=== PATIENT | female | born 1935 | race Caucasian/White ===

== ENCOUNTER → 2018-09-21 | Outpatient (CLI) | payer OTHER ==
[2018-09-21 19:27] VITALS: BP 99/51
== END | disposition home or self-care (01) ==
LOC: WHH 10:30
PROVIDERS: ATTEND Surgery
DX: L89.154 Pressure ulcer of sacral region, stage 4 (principal); S91.302A Unspecified open wound, left foot, initial encounter; S01.301A Unspecified open wound of right ear, initial encounter; K21.9 Gastro-esophageal reflux disease without esophagitis; F31.9 Bipolar disorder, unspecified; F03.90 Unspecified dementia, unspecified severity, without behavioral disturbance, psychotic disturbance, mood disturbance, and anxiety; Z93.1 Gastrostomy status; X58.XXXA Exposure to other specified factors, initial encounter; Y93.89 Activity, other specified; Y92.89 Other specified places as the place of occurrence of the external cause; Y99.8 Other external cause status
CPT/HCPCS: 11042; A6213; A6234; G0463

== ENCOUNTER → 2018-09-30 | Outpatient (CLI) | payer OTHER ==
[~2018-09-30] MED LIST: HONEY 1 APPL/ML TUBE TP ONE
[2018-09-30 14:54] VITALS: BP 133/74
== END | disposition home or self-care (01) ==
LOC: WHH 09:25
PROVIDERS: ATTEND Surgery
DX: L89.154 Pressure ulcer of sacral region, stage 4 (principal); S91.302D Unspecified open wound, left foot, subsequent encounter; S01.301D Unspecified open wound of right ear, subsequent encounter; S06.5X0D Traumatic subdural hemorrhage without loss of consciousness, subsequent encounter; K21.9 Gastro-esophageal reflux disease without esophagitis; M62.59 Muscle wasting and atrophy, not elsewhere classified, multiple sites; G30.9 Alzheimer's disease, unspecified; F02.80 Dementia in other diseases classified elsewhere, unspecified severity, without behavioral disturbance, psychotic disturbance, mood disturbance, and anxiety; F31.9 Bipolar disorder, unspecified; Z93.1 Gastrostomy status; X58.XXXD Exposure to other specified factors, subsequent encounter
CPT/HCPCS: 11043; A6213; 11042; 11045

== ENCOUNTER 2018-11-06 10:10 | Inpatient (IN) | payer OTHER ==
[~2018-11-06] VITALS: Ht 167.6 cm; Wt 65.7 kg
[~2018-11-06 10:10] MED LIST changes: -HONEY 1 APPL/ML TUBE TP ONE; +VANCOMYCIN 1.5 GM in SODIUM CHLORIDE 0.9% 250 ML IV SCH
[2018-11-06] MEDS ORDERED: MEROPENEM 1 GM VIAL ONE ×2 (12:12→20:31)
[2018-11-06 12:48] LABS: BASOPHILS % (AUTO) 0.4 % (0.0-5.0); EOSINOPHILS % (AUTO) 0.8 % (0.0-8.0); HEMATOCRIT 28.7 % (36-48); LYMPHOCYTES % (AUTO) 6.1 % (21.0-51.0); MEAN CORPUSCULAR HEMOGLOBIN 24.6 pg (27.0-33.0); MEAN CORPUSCULAR HGB CONC 31.8 g/dL (32.0-36.0); MEAN CORPUSCULAR VOLUME 77.4 fL (79-99); MONOCYTES % (AUTO) 6.2 % (3.0-13.0); NEUTROPHILS % (AUTO) 86.5 % (40.0-77.0); PLATELET COUNT (AUTO) 418 K/uL (130-400); RED BLOOD CELL COUNT(AUTO) 3.71 MIL/uL (4.00-5.50); RED CELL DISTRIBUTION WIDTH 17.5 % (11.0-15.5); WHITE BLOOD COUNT (AUTO) 13.1 K/uL (4.8-10.8)
[2018-11-06 12:57] LABS: CREATININE 0.5 mg/dL (0.5-1.5); POTASSIUM 3.2 mmol/L (3.5-5.1)
[2018-11-06 12:58] LABS: INR 1.08 (0.85-1.15); PARTIAL THROMBOPLASTIN TIME 32.4 SEC (26.3-35.5); PROTHROMBIN TIME 11.3 SEC (9.6-11.6)
[2018-11-06 13:01] LABS: ALBUMIN 1.4 g/dL (3.5-5.0); BILIRUBIN,DIRECT 0.2 mg/dL (0.0-0.3); BILIRUBIN,TOTAL 0.3 mg/dL (0.2-1.0); TOTAL PROTEIN, SERUM 4.6 g/dL (6.0-8.3)
[2018-11-06 13:13] LABS: B-TYPE NATRIURETIC PEPTIDE 186 pg/mL (0-100)
[2018-11-06 14:10] LABS: BILIRUBIN,URINE Negative (NEGATIVE); COLOR,URINE Yellow (YELLOW); GLUCOSE, URINE (UA) Negative (NEGATIVE); KETONES,URINE Negative (NEGATIVE); LEUKOCYTE ESTERASE ,URINE Negative (NEGATIVE); NITRATE,URINE Negative (NEGATIVE); OCCULT BLOOD,URINE Negative (NEGATIVE); PROTEIN,URINE Negative (NEGATIVE)
[2018-11-06 14:18] LABS: APPEARANCE,URINE Clear (CLEAR)
[2018-11-06] MEDS ORDERED: MORPHINE SULFATE 2 MG/ML 1ML SYG IV PRN (16:45)
[2018-11-06] MEDS ORDERED: ONDANSETRON HCL 4 MG/2 ML VIAL IV PRN (16:45)
[2018-11-06] MEDS ORDERED: FAMOTIDINE/PF 20 MG/2 ML VIAL IV ONE (20:50)
[2018-11-06] MEDS: FAMOTIDINE/PF 20 MG/2 ML VIAL IV SCH (21:00)
[2018-11-07] MEDS: MEROPENEM 1 GM VIAL IV SCH ×4 (01:00→18:11)
[2018-11-07] MEDS ORDERED: ONDANSETRON HCL 4 MG/2 ML VIAL ONE (01:07)
[2018-11-07] MEDS ORDERED: MORPHINE SULFATE 2 MG/ML 1ML SYG ONE (01:07)
[2018-11-07 03:06] VITALS: BP 177/115
[2018-11-07 05:03] VITALS: BP 162/76
[2018-11-07 06:33] LABS: BASOPHILS % (AUTO) 0.5 % (0.0-5.0); EOSINOPHILS % (AUTO) 0.8 % (0.0-8.0); LYMPHOCYTES % (AUTO) 6.8 % (21.0-51.0); MEAN CORPUSCULAR HEMOGLOBIN 25.7 pg (27.0-33.0); MEAN CORPUSCULAR HGB CONC 32.7 g/dL (32.0-36.0); MEAN CORPUSCULAR VOLUME 78.6 fL (79-99); MONOCYTES % (AUTO) 5.1 % (3.0-13.0); NEUTROPHILS % (AUTO) 86.8 % (40.0-77.0); PLATELET COUNT (AUTO) 478 K/uL (130-400); RED BLOOD CELL COUNT(AUTO) 4.07 MIL/uL (4.00-5.50); RED CELL DISTRIBUTION WIDTH 17.7 % (11.0-15.5); WHITE BLOOD COUNT (AUTO) 10.7 K/uL (4.8-10.8)
[2018-11-07 06:43] LABS: CREATININE 0.4 mg/dL (0.5-1.5); POTASSIUM 3.1 mmol/L (3.5-5.1)
[2018-11-07 08:00] VITALS: BP 130/69
[2018-11-07] MEDS: FAMOTIDINE/PF 20 MG/2 ML VIAL IV SCH ×2 (09:17→22:20)
[2018-11-07] MEDS: ENOXAPARIN SODIUM 30 MG/0.3 ML SQ SCH (09:17)
[2018-11-07 12:00] VITALS: BP 128/72
[2018-11-07] MEDS ORDERED: LIDOCAINE HCL-MPF 1% 2ML VIAL IVP PRN (14:30)
[2018-11-07] MEDS ORDERED: POTASSIUM CHLORIDE 20MEQ/100ML 100 ML IV PRN (14:30)
[2018-11-07 16:00] VITALS: BP 132/68
[2018-11-07] MEDS: INSULIN HUMULIN R 100 UNIT/ML 3ML SQ SCH ×2 (16:30→21:00)
--- NOTE | 2018-11-07 17:28 | NUR ---
INITIAL: Spoke w Ashlee Laird @ [phone] patients guardian via phone to discuss dcp. Per Ashlee pt is a resident @ [facility]. Pt is dependent w ADLs and care. Ashlee states plan is for pt to return to [facility] @ dc. MARS/PC phone consent obtained. Will continue to follow and wait for Md recommendations. Addendum: 11/07/18 at 1730 by ELSA DURAN CM Amended: Links added.
--- NOTE | 2018-11-07 18:00 | NUR ---
CLEANED SACRAL WOUND WITH NORMAL SALINE. APPLIED WET TO DRY SOAKED KERLIX, 4X4 , ABD AND SECURED WITH MEDIPORE TAPE. PATIENT TOLERATED WELL.
[2018-11-07 19:55] VITALS: BP 121/62
[2018-11-08 00:36] VITALS: BP 135/63
[2018-11-08] MEDS: MEROPENEM 1 GM VIAL IV SCH ×3 (01:29→17:07)
[2018-11-08 04:01] VITALS: BP 116/61
[2018-11-08 06:03] LABS: HEMATOCRIT 27.3 % (36-48); MEAN CORPUSCULAR HEMOGLOBIN 24.6 pg (27.0-33.0); MEAN CORPUSCULAR HGB CONC 31.2 g/dL (32.0-36.0); PLATELET COUNT (AUTO) 418 K/uL (130-400); RED BLOOD CELL COUNT(AUTO) 3.46 MIL/uL (4.00-5.50); RED CELL DISTRIBUTION WIDTH 17.2 % (11.0-15.5); WHITE BLOOD COUNT (AUTO) 11.8 K/uL (4.8-10.8)
[2018-11-08] MEDS: INSULIN HUMULIN R 100 UNIT/ML 3ML SQ SCH ×4 (06:04→21:00)
[2018-11-08 06:15] LABS: CREATININE 0.5 mg/dL (0.5-1.5); MAGNESIUM 1.6 mg/dL (1.80-2.40); POTASSIUM 3.3 mmol/L (3.5-5.1)
[2018-11-08 07:00] VITALS: BP 121/59
[2018-11-08] MEDS ORDERED: LEVE500L PO (07:45)
[2018-11-08] MEDS ORDERED: PANT40SU PO (07:45)
[2018-11-08] MEDS ORDERED: MEMA10TA11 PO (07:45)
[2018-11-08] MEDS ORDERED: ACET650S28 PO (07:45)
[2018-11-08] MEDS ORDERED: GUAI100S13 PO (07:45)
[2018-11-08] MEDS ORDERED: FAMO40TA7 PO (07:45)
[2018-11-08] MEDS ORDERED: IPRA3AMP24 IH (07:45)
[2018-11-08] MEDS: FAMOTIDINE/PF 20 MG/2 ML VIAL IV SCH ×2 (09:25→21:22)
[2018-11-08] MEDS: ENOXAPARIN SODIUM 30 MG/0.3 ML SQ SCH (09:26)
[2018-11-08] MEDS ORDERED: BISACODYL 10 MG SUPP.RECT RC PRN (10:30)
[2018-11-08 11:00] VITALS: BP 123/59
--- NOTE | 2018-11-08 12:49 | NUR ---
CM Note: HNR pending approval Spoke to Caterina w/HNR, received clinicals and new pasrr. Pt pending approval at this time. EMS filled out, pending to be faxed w/current date, primary nurse to call [facility] once pt has approval and ready to DC. Primary nurse aware. CM to cont to follow up.
[2018-11-08 16:00] VITALS: BP 112/56
--- NOTE | 2018-11-08 16:04 | NUR ---
RD Notification RD Bolus tube feeding recommendations: x5cans/day: 1185mL/1775kcal/76gPro/900mL Flushes:70mL before and after each feeding. Patient with Stg 4 decubitus ulcer; Rec to administer Kristofer BID. Rec to add Vitamin C, Zinc for wound healing support. Patient monitored labs: K 3.3, Glu 125, Mg 1.60, Alb 1.4. RD to continue to monitor. Please notify RD as nutritional concerns arise. Thank you. Addendum: 11/08/18 at [address] Amended: Links added.
[2018-11-08] MEDS ORDERED: MAGNESIUM 2GM PREMIX 50ML 50 ML IV PRN (17:15)
--- NOTE | 2018-11-08 18:00 | NUR ---
CLEANED SACRAL WOUND WITH NORMAL SALINE. APPLIED WET TO DRY SOAKED KERLIX, 4X4 , ABD AND SECURED WITH MEDIPORE TAPE. PATIENT TOLERATED WELL.
[2018-11-08 20:00] VITALS: BP 160/68
[2018-11-08] MEDS: LEVETIRACETAM 100 MG/ML 5 ML UDCUP PO SCH (21:22)
[2018-11-09] VITALS: BP 159/82
[2018-11-09] MEDS: MEROPENEM 1 GM VIAL IV SCH ×3 (01:45→17:26)
--- NOTE | 2018-11-09 02:36 | NUR ---
WOUND CARE PROVIDED WOUND CARE. REMOVED SOILED GAUZE. WOUND WITH SLIGHT AMOUNT OF SEROSANGUINEOUS DRAINAGE, PINK BORDER. APPLIED WET TO DRY DRESSING, SECURED WITH TAPE. PATIENT TOLERATED DRESSING CHANGE WELL. BED BATH PROVIDED AT THIS TIME WELL. GENERALIZED EDEMA. TRUJILLO/ KJ CARE PROVIDED.
[2018-11-09 04:00] VITALS: BP 150/78
[2018-11-09 05:01] LABS: BASOPHILS % (AUTO) 0.3 % (0.0-5.0); EOSINOPHILS % (AUTO) 4.6 % (0.0-8.0); HEMATOCRIT 25.4 % (36-48); LYMPHOCYTES % (AUTO) 8.3 % (21.0-51.0); MEAN CORPUSCULAR HEMOGLOBIN 25.9 pg (27.0-33.0); MEAN CORPUSCULAR HGB CONC 32.9 g/dL (32.0-36.0); MEAN CORPUSCULAR VOLUME 78.6 fL (79-99); MONOCYTES % (AUTO) 6.3 % (3.0-13.0); NEUTROPHILS % (AUTO) 80.5 % (40.0-77.0); PLATELET COUNT (AUTO) 326 K/uL (130-400); RED BLOOD CELL COUNT(AUTO) 3.24 MIL/uL (4.00-5.50); RED CELL DISTRIBUTION WIDTH 17.5 % (11.0-15.5); WHITE BLOOD COUNT (AUTO) 9.6 K/uL (4.8-10.8)
[2018-11-09 05:15] LABS: CREATININE 0.4 mg/dL (0.5-1.5); MAGNESIUM 1.8 mg/dL (1.80-2.40); POTASSIUM 3.3 mmol/L (3.5-5.1)
[2018-11-09 07:00] VITALS: BP 123/57
[2018-11-09] MEDS: INSULIN HUMULIN R 100 UNIT/ML 3ML SQ SCH ×4 (07:18→21:00)
[2018-11-09] MEDS ORDERED: POTASSIUM CHLORIDE 20MEQ/100ML 100 ML IV PRN (09:15)
[2018-11-09] MEDS ORDERED: POTASSIUM CHLORIDE 20 MEQ ERTAB PO PRN (09:15)
[2018-11-09] MEDS ORDERED: LIDOCAINE HCL-MPF 1% 2ML VIAL IVP PRN (09:15)
[2018-11-09] MEDS ORDERED: POTASSIUM CHLORIDE 20 MEQ ERTAB PO ONE (09:22)
[2018-11-09] MEDS ORDERED: POTASSIUM CHLORIDE 10% ELIXIR 20 MEQ/15 ML UDCUP ONE (09:24)
[2018-11-09] MEDS: LEVETIRACETAM 100 MG/ML 5 ML UDCUP PO SCH ×2 (09:38→20:03)
[2018-11-09] MEDS: MEMANTINE HCL 5 MG TABLET PO SCH (09:38)
[2018-11-09] MEDS: FAMOTIDINE/PF 20 MG/2 ML VIAL IV SCH ×2 (09:38→20:02)
[2018-11-09] MEDS: ENOXAPARIN SODIUM 30 MG/0.3 ML SQ SCH (09:38)
[2018-11-09] MEDS: POTASSIUM CHLORIDE 10% ELIXIR 20 MEQ/15 ML UDCUP PO PRN ×3 (10:08→17:26)
[2018-11-09 11:00] VITALS: BP 127/58
[2018-11-09 16:00] VITALS: BP 119/79
[2018-11-09] MEDS ORDERED: PHARMACY COMMUNICATION MISC SCH (16:30)
[2018-11-09] MEDS: ANASEPT PO SCH (16:31)
[2018-11-09 19:12] VITALS: BP 138/75
[2018-11-10 00:12] VITALS: BP 170/84
--- NOTE | 2018-11-10 00:15 | NUR ---
RECHECKED BP BP 170/84. RECHECKED 15 MINS LATER, BP 160/69. PATIENT AWAKE IN BED, NO DISTRESS NOTED. PT REPORTS NO DISCOMFORTS AT THIS TIME. BED LOCKED IN LOWEST POSITION, SAFETY PADS ON, CALL LIGHT WITHIN REACH.
[2018-11-10] MEDS: MEROPENEM 1 GM VIAL IV SCH ×3 (02:42→17:46)
[2018-11-10 04:12] VITALS: BP 159/92
[2018-11-10 05:27] LABS: BASOPHILS % (AUTO) 0.8 % (0.0-5.0); EOSINOPHILS % (AUTO) 5.8 % (0.0-8.0); HEMATOCRIT 28.2 % (36-48); LYMPHOCYTES % (AUTO) 8.9 % (21.0-51.0); MEAN CORPUSCULAR HEMOGLOBIN 24.7 pg (27.0-33.0); MEAN CORPUSCULAR HGB CONC 31.7 g/dL (32.0-36.0); MEAN CORPUSCULAR VOLUME 78.1 fL (79-99); MONOCYTES % (AUTO) 6.2 % (3.0-13.0); NEUTROPHILS % (AUTO) 78.3 % (40.0-77.0); PLATELET COUNT (AUTO) 484 K/uL (130-400); RED BLOOD CELL COUNT(AUTO) 3.61 MIL/uL (4.00-5.50); RED CELL DISTRIBUTION WIDTH 17.7 % (11.0-15.5); WHITE BLOOD COUNT (AUTO) 10.6 K/uL (4.8-10.8)
[2018-11-10 05:42] LABS: CREATININE 0.4 mg/dL (0.5-1.5); POTASSIUM 4.1 mmol/L (3.5-5.1)
[2018-11-10] MEDS: INSULIN HUMULIN R 100 UNIT/ML 3ML SQ SCH ×4 (06:46→21:00)
[2018-11-10 07:00] VITALS: BP 138/61
[2018-11-10] MEDS: LEVETIRACETAM 100 MG/ML 5 ML UDCUP PO SCH ×2 (09:15→21:46)
[2018-11-10] MEDS: MEMANTINE HCL 5 MG TABLET PO SCH (09:15)
[2018-11-10] MEDS: FAMOTIDINE/PF 20 MG/2 ML VIAL IV SCH ×2 (09:15→21:47)
[2018-11-10] MEDS: ENOXAPARIN SODIUM 30 MG/0.3 ML SQ SCH (09:15)
--- NOTE | 2018-11-10 10:04 | NUR ---
CM Note: HNR pending ins auth Spoke to Caterina w/HNR, will accept pt back but since pt will have woundvac on dc will need auth from [facility]. Pt currently pending ins auth at this time. EMS filled out pending to be faxed w/current date, primary nurse to call [facility] once pt ready to dc. Pending debridement w/woundvac application today. Primary nurse aware. CM to cont to follow up.
[2018-11-10 11:00] VITALS: BP 124/63
--- NOTE | 2018-11-10 15:00 | NUR ---
NOTIFIED KAYA BLAKE OF VENOUS DOPPLER RESULTS. ASKED IF ON LOVENOX, NOTIFIED YES ON LOVENOX 30MG SQ DAILY. SAID THAT WAS FINE ON LOVENOX. WILL CONTINUE TO MONITOR.
[2018-11-10 16:00] VITALS: BP 123/77
[2018-11-10 19:10] VITALS: BP 135/56
[2018-11-11 00:10] VITALS: BP 124/76
[2018-11-11] MEDS ORDERED: SODIUM CHLORIDE 0.9% 500ML 500 ML IV ONE (00:56)
[2018-11-11] MEDS: MEROPENEM 1 GM VIAL IV SCH ×3 (01:03→17:43)
[2018-11-11 03:30] VITALS: BP 149/62
--- NOTE | 2018-11-11 04:24 | NUR ---
PATIENT UPDATE REPORTED THAT PT WILL HAVE THE DEBRIDEMENT OF THE SACRAL DECUBITUS TODAY BY DR. BAXTER, KEPT PT NPO POST MN, BOLUS TUBE FEEDING ADMINISTERED JUST BEFORE MN BEFORE NPO STATUS. TOLERATED FEEDING WELL, HOB UP AT 40 DEGREES. CONTINUES WITH THE WOUND VAC AT CONTINOUS PRESSURE AT 125 MMHG. PT REPOSITIONED INBED Q 2 HRS FOR PRESSURE RELIEF.
[2018-11-11 05:54] LABS: BASOPHILS % (AUTO) 0.8 % (0.0-5.0); EOSINOPHILS % (AUTO) 7.9 % (0.0-8.0); LYMPHOCYTES % (AUTO) 9.5 % (21.0-51.0); MEAN CORPUSCULAR HEMOGLOBIN 24.7 pg (27.0-33.0); MEAN CORPUSCULAR HGB CONC 31.6 g/dL (32.0-36.0); MEAN CORPUSCULAR VOLUME 78.3 fL (79-99); MONOCYTES % (AUTO) 5.2 % (3.0-13.0); NEUTROPHILS % (AUTO) 76.6 % (40.0-77.0); NUCLEATED RED BLOOD CELLS 0.1 % (0.0-0.19); RED BLOOD CELL COUNT(AUTO) 3.58 MIL/uL (4.00-5.50); RED CELL DISTRIBUTION WIDTH 18.1 % (11.0-15.5); WHITE BLOOD COUNT (AUTO) 10.9 K/uL (4.8-10.8)
[2018-11-11 05:59] LABS: CREATININE 0.4 mg/dL (0.5-1.5); POTASSIUM 3.9 mmol/L (3.5-5.1)
[2018-11-11] MEDS: INSULIN HUMULIN R 100 UNIT/ML 3ML SQ SCH ×4 (06:57→20:31)
[2018-11-11 07:33] LABS: PLATELET COUNT (AUTO) 480 K/uL (130-400)
[2018-11-11 07:46] VITALS: BP 119/63
[2018-11-11] MEDS: LEVETIRACETAM 100 MG/ML 5 ML UDCUP PO SCH ×2 (10:22→20:31)
[2018-11-11] MEDS: FAMOTIDINE/PF 20 MG/2 ML VIAL IV SCH ×2 (10:23→20:31)
[2018-11-11] MEDS: MEMANTINE HCL 5 MG TABLET PO SCH (10:23)
--- NOTE | 2018-11-11 11:30 | NUR ---
RD Follow up Note Patient tolerating tube feedings with no tube feeding residuals. LBM 11/09/18. Patient monitored labs: Cr 0.4, Ca 8.2, Alb 1.4. Patient remains with L. Sacrum/R. Ear ulcer; Rec Kristofer BID - additional order placed in patient chart, RN notified. Patient with increased energy needs; tube feeding recommendations placed in patient chart. RD to continue to monitor. Please notify RD as nutritional concerns arise. Thank you. Addendum: 11/11/18 at [address] RD Amended: Links added.
[2018-11-11 11:49] VITALS: BP 123/62
--- NOTE | 2018-11-11 14:06 | NUR ---
CM Note: HNR ins auth Spoke to Caterina w/HNR pt has ins auth and reacceptance. EMS filled out pending to be faxed w/current date, primary nurse to call [facility] one pt ready to dc. Primary nurse aware. CM to cont to follow up.
[2018-11-11 16:00] VITALS: BP 126/53
[2018-11-11] MEDS: ANASEPT PO SCH (16:31)
[2018-11-11] MEDS: ENOXAPARIN SODIUM 30 MG/0.3 ML SQ SCH (17:43)
[2018-11-11 19:22] VITALS: BP 130/61
[2018-11-12 00:12] VITALS: BP 145/67
[2018-11-12] MEDS: MEROPENEM 1 GM VIAL IV SCH ×3 (01:30→16:54)
[2018-11-12 04:15] VITALS: BP 153/76
[2018-11-12] MEDS: INSULIN HUMULIN R 100 UNIT/ML 3ML SQ SCH ×3 (05:43→16:30)
[2018-11-12 07:30] VITALS: BP 107/56
[2018-11-12] MEDS: ENOXAPARIN SODIUM 30 MG/0.3 ML SQ SCH (10:32)
[2018-11-12] MEDS: LEVETIRACETAM 100 MG/ML 5 ML UDCUP PO SCH (10:32)
[2018-11-12] MEDS: FAMOTIDINE/PF 20 MG/2 ML VIAL IV SCH (10:33)
[2018-11-12] MEDS: MEMANTINE HCL 5 MG TABLET PO SCH (10:33)
[2018-11-12 11:00] VITALS: BP 182/86
--- NOTE | 2018-11-12 15:52 | NUR ---
REPORT GIVEN TO NURSE MATHIS FROM [facility] . MED RECONCILIATION FAXED AND WILL BE SENT WITH EMS TO [facility] ALONG WITH PACKET
[2018-11-12 16:00] VITALS: BP 115/63
== END 2018-11-12 18:24 | DRG 871 ==
LOC: EDH 10:10 → EDHIP 16:41 → 3DH 11-07 01:12
PROVIDERS: ADMIT Family Medicine; ATTEND Family Medicine
DX: A41.9 Sepsis, unspecified organism (principal); L89.154 Pressure ulcer of sacral region, stage 4; E43 Unspecified severe protein-calorie malnutrition; R64 Cachexia; I82.612 Acute embolism and thrombosis of superficial veins of left upper extremity; F03.90 Unspecified dementia, unspecified severity, without behavioral disturbance, psychotic disturbance, mood disturbance, and anxiety; R62.7 Adult failure to thrive; E87.6 Hypokalemia; I10 Essential (primary) hypertension; D64.9 Anemia, unspecified; R13.12 Dysphagia, oropharyngeal phase; E66.9 Obesity, unspecified; E83.42 Hypomagnesemia; G40.909 Epilepsy, unspecified, not intractable, without status epilepticus; L89.212 Pressure ulcer of right hip, stage 2; L89.892 Pressure ulcer of other site, stage 2; B95.2 Enterococcus as the cause of diseases classified elsewhere; B95.1 Streptococcus, group B, as the cause of diseases classified elsewhere; Z93.1 Gastrostomy status; Z74.01 Bed confinement status; Z68.23 Body mass index [BMI] 23.0-23.9, adult
CPT/HCPCS: 36415; 71045; 72192; 80048; 80076; 81003; 82550; 82948; 83735; 83880; 84484; 85025; 85027; 85610; 85730; 87040; 87070; 87077; 87186; 93005; 93971; A4218; G0378; J1650; J1815; J2185; J2405; J3370; J3475; J3480; J3490; J7030; J7040

== ENCOUNTER 2018-11-19 14:47 | Emergency (ER) | payer OTHER ==
[~2018-11-19 14:47] MED LIST changes: +ACET650S28 PO; +FAMO40TA7 PO; +GUAI100S13 PO; +IPRA3AMP24 IH; +LEVE500L PO; +MEMA10TA11 PO; +PANT40SU PO; -VANCOMYCIN 1.5 GM in SODIUM CHLORIDE 0.9% 250 ML IV SCH
[2018-11-19] MEDS ORDERED: DIATR MEGLU/DIATRIZOATE SODIUM 30 ML BOTTLE ONE (15:29)
[2018-11-19 15:37] LABS: BASOPHILS % (AUTO) 0.6 % (0.0-5.0); EOSINOPHILS % (AUTO) 3.7 % (0.0-8.0); HEMATOCRIT 27.4 % (36-48); LYMPHOCYTES % (AUTO) 10.1 % (21.0-51.0); MEAN CORPUSCULAR HEMOGLOBIN 25.4 pg (27.0-33.0); MEAN CORPUSCULAR HGB CONC 31.9 g/dL (32.0-36.0); MEAN CORPUSCULAR VOLUME 79.6 fL (79-99); NEUTROPHILS % (AUTO) 79.6 % (40.0-77.0); PLATELET COUNT (AUTO) 407 K/uL (130-400); RED BLOOD CELL COUNT(AUTO) 3.44 MIL/uL (4.00-5.50); RED CELL DISTRIBUTION WIDTH 19.4 % (11.0-15.5); WHITE BLOOD COUNT (AUTO) 7.8 K/uL (4.8-10.8)
[2018-11-19 15:57] LABS: CREATININE 0.4 mg/dL (0.5-1.5); POTASSIUM 3.5 mmol/L (3.5-5.1)
[2018-11-19 15:58] LABS: INR 0.99 (0.85-1.15); PARTIAL THROMBOPLASTIN TIME 27.2 SEC (26.3-35.5); PROTHROMBIN TIME 10.4 SEC (9.6-11.6)
[2018-11-19 16:02] LABS: ALBUMIN 1.8 g/dL (3.5-5.0); BILIRUBIN,TOTAL 0.2 mg/dL (0.2-1.0); TOTAL PROTEIN, SERUM 5.3 g/dL (6.0-8.3)
[2018-11-19 16:25] LABS: APPEARANCE,URINE CLOUDY (CLEAR); BILIRUBIN,URINE NEGATIVE (NEGATIVE); COLOR,URINE YELLOW (YELLOW); GLUCOSE, URINE (UA) NEGATIVE (NEGATIVE); KETONES,URINE NEGATIVE (NEGATIVE); LEUKOCYTE ESTERASE ,URINE SMALL (NEGATIVE); NITRATE,URINE NEGATIVE (NEGATIVE); OCCULT BLOOD,URINE LARGE (NEGATIVE); PROTEIN,URINE 30 mg/dL (NEGATIVE)
[2018-11-19 16:32] LABS: RBC,URINE 51-100 /HPF (0-1)
[2018-11-19 16:33] LABS: BACTERIA,URINE Rare /HPF (None Seen); CALCIUM OXALATE CRYSTALS,UR Few /LPF (None Seen); SQUAMOUS EPITHELIAL CELL,UR Few /HPF (0-2)
== END 2018-11-19 20:10 ==
LOC: EDH 14:47
DX: K94.23 Gastrostomy malfunction (principal); L89.154 Pressure ulcer of sacral region, stage 4; G30.9 Alzheimer's disease, unspecified; F02.80 Dementia in other diseases classified elsewhere, unspecified severity, without behavioral disturbance, psychotic disturbance, mood disturbance, and anxiety
CPT/HCPCS: 36415; 71045; 74018; 80053; 81001; 82150; 82550; 83605; 83690; 84484; 85025; 85610; 85730; 87040 ×2; 93005; 99285; Q9963

== ENCOUNTER 2018-12-02 10:03 | Inpatient (IN) | payer OTHER | END 2018-12-17 10:04 | disposition hospice, inpatient (51) | LOC: EDH 10:03 → EDHIP 15:12 → 2BH 19:37 | PROC: 5A1955Z Respiratory Ventilation, Greater than 96 Consecutive Hours (ICD-10-PCS; principal; 2018-12-03 14:23) | PROC: 0J980ZZ Drainage of Abdomen Subcutaneous Tissue and Fascia, Open Approach (ICD-10-PCS; 2018-12-03 14:23) | PROC: 06H03DZ Insertion of Intraluminal Device into Inferior Vena Cava, Percutaneous Approach (ICD-10-PCS; 2018-12-03 14:23) | DX: A41.9 Sepsis, unspecified organism (principal); J96.01 Acute respiratory failure with hypoxia; L89.154 Pressure ulcer of sacral region, stage 4; R65.21 Severe sepsis with septic shock; E43 Unspecified severe protein-calorie malnutrition; R53.2 Functional quadriplegia; K65.1 Peritoneal abscess; D65 Disseminated intravascular coagulation [defibrination syndrome]; N39.0 Urinary tract infection, site not specified; K94.23 Gastrostomy malfunction; Z99.11 Dependence on respirator [ventilator] status; I82.403 Acute embolism and thrombosis of unspecified deep veins of lower extremity, bilateral; E83.52 Hypercalcemia; Z93.1 Gastrostomy status; Z16.24 Resistance to multiple antibiotics ==

== ENCOUNTER 2018-12-17 10:05 | Inpatient (IN) | payer OTHER | END 2018-12-18 13:18 | disposition EXP | LOC: 2BH 10:05 ==